=== PATIENT | male | born 1995 | race Caucasian/White ===

== ENCOUNTER 2019-10-19 13:02 | Emergency (ER) | payer OTHER ==
--- NOTE | 2019-10-19 13:25 | ED Physician Documentation ---
PD HPI CHEST PAIN - Stated complaint Stated Complaint: CP - Chief complaint Chief Complaint: Cardiac - History obtained from History obtained from: Patient - History of Present Illness Timing - onset: How many days ago (3) Timing - onset during: Rest Timing - duration: Days (3) Timing - details: Gradual onset, Still present, Waxing and waning Pain level max: 7 Pain level now: 1 Quality: Pressure, Throbbing Location: Substernal, Left chest Radiation: No: Jaw, Neck, Back, Abdominal, Left upper extremity, Right upper extremity Improved by: Rest Worsened by: Exertion, Inspiration, Position Associated symptoms: Shortness of air. No: Diaphoresis, Nausea, Vomiting, Feeling faint / dizzy, General Weakness, Palpitations, Cough Similar symptoms before: No diagnosis Recently seen: Not recently seen - Additional information Additional information: 23-year-old relates that last night he was sitting at his desk when he developed substernal chest pain without radiation it is worse with inspiration worse with certain movement and certain position. He denies any radiation of the pain he denies any diaphoresis nausea or lightheadedness with this pain. He has had this pain previously when he was a sophomore in high school and periodically since then he has had had similar pain for several days. Pain peaked last night and is now improved. Review of Systems Constitutional: denies: Fever Eyes: denies: Decreased vision Ears: denies: Ear pain Nose: denies: Congestion Throat: denies: Sore throat Cardiac: reports: Chest pain / pressure. denies: Palpitations, Pedal edema, Calf pain Respiratory: denies: Dyspnea, Cough GI: denies: Abdominal Pain, Nausea, Vomiting : denies: Dysuria Skin: denies: Rash Musculoskeletal: denies: Neck pain, Back pain, Extremity pain Neurologic: denies: Generalized weakness, Focal weakness, Numbness PD PAST MEDICAL HISTORY - Present Medications Home Medications: Ambulatory Orders Medication Instructions Recorded Confirmed Meloxicam 15 mg PO DAILY PRN #15 tablet 10/19/19 - Allergies Allergies/Adverse Reactions: Allergies Allergy/AdvReac Type Severity Reaction Status Date / Time No Known Drug Allergies Allergy Verified 10/19/19 13:04 PD ED PE NORMAL - Vitals Vital signs reviewed: Yes (normal ) - General General: Alert and oriented X 3, No acute distress, Well developed/nourished - HEENT HEENT: Atraumatic, PERRL, EOMI - Neck Neck: Supple, no meningeal sign, No bony TTP - Cardiac Cardiac: RRR, No murmur - Respiratory Respiratory: No respiratory distress, Clear bilaterally, Other (No specific chest wall tenderness) - Abdomen Abdomen: Soft, Non tender - Back Back: No CVA TTP, No spinal TTP - Derm Derm: Normal color, Warm and dry, No rash - Extremities Extremities: No deformity, No edema, No calf tenderness / cord - Neuro Neuro: Alert and oriented X 3, auto porter 2-12 intact, No motor deficit, No sensory deficit, Normal speech Eye Opening: Spontaneous Motor: Obeys Commands Verbal: Oriented GCS Score: 15 - Psych Psych: Normal mood, Normal affect Results - Vitals Vitals: Vital Signs - 24 hr 10/19/19 10/19/19 10/19/19 13:04 13:34 14:36 Temperature 36.8 C Heart Rate 58 L 57 L 59 L Respiratory 16 16 12 Rate Blood Pressure 125/72 120/71 119/69 O2 Saturation 99 99 99 Oxygen O2 Source Room air - EKG (time done) 1311 Rate: Rate (enter#) (56) Rhythm: NSR Compare to prior EKG: Old EKG unavailable Computer interpretation: Agree with computer - Labs Labs: Laboratory Tests 10/19/19 10/19/19 10/19/19 13:30 13:30 13:30 WBC 4.7 L RBC 5.14 Hgb 16.7 Hct 48.8 MCV 94.9 H MCH 32.5 H MCHC 34.2 RDW 11.6 L Plt Count 237 MPV 10.5 Neut # (Auto) 2.7 Lymph # (Auto) 1.5 [place] # (Auto) 0.5 Eos # (Auto) 0.0 Baso # (Auto) 0.0 Absolute Nucleated RBC 0.00 Nucleated RBC % 0.0 Sodium 137 Potassium 4.0 Chloride 99 L Carbon Dioxide 30 Anion Gap 8.0 BUN 12 Creatinine 1.2 Estimated GFR (MDRD) 76 L Glucose 88 Calcium 9.5 Total Bilirubin 1.5 H AST 16 ALT 13 Alkaline Phosphatase 51 Troponin I High Sens < 2.3 L Total Protein 7.5 Albumin 4.4 Globulin 3.1 Albumin/Globulin Ratio 1.4 Lipase 26 - Rads (name of study) chest Radiology: Prelim report reviewed (Impression: No acute cardiopulmonary process is seen.), EMP read indepedently, See rad report PD MEDICAL DECISION MAKING - ED course Complexity details: reviewed results, re-evaluated patient, considered differential, d/w patient ED course: 23-year-old male with pleuritic chest pain has a negative cardiac work-up and symptoms of pleuritic chest pain. He is administered dexamethasone and Toradol and given instructions for pleurisy.We have written a prescription for meloxicam Departure - Departure Disposition: 01 Home, Self Care Clinical Impression: Atypical chest pain, Pleurisy Condition: Stable Instructions: ED Chest Pain Pleurisy Follow-Up: JANE Elizondo [Provider Group] Prescriptions: Meloxicam 15 mg PO DAILY PRN #15 tablet PRN Reason: Pain Discharge Date/Time: 10/19/19 14:55
--- NOTE | 2019-10-19 13:46 | XRAY Report ---
PROCEDURE: Chest 1 View X-Ray INDICATIONS: Chest Pain TECHNIQUE: One view of the chest was acquired. COMPARISON: None available. FINDINGS: Surgical changes and devices: None. Lungs and pleura: No pleural effusions or pneumothorax. Lungs are clear. Mediastinum: Mediastinal contours appear normal. Heart size is normal. Bones and chest wall: No suspicious bony lesions. Overlying soft tissues appear unremarkable. IMPRESSION: No acute cardiopulmonary process is seen. Reviewed by: Ky Little MD on 10/19/2019 12:45 PM [facility] Approved by: Ky Little MD on 10/19/2019 12:45 PM [facility] Station ID: [id number]
[2019-10-19 13:47] LABS: BASOPHILS % (AUTO) 0.2 %; EOSINOPHILS % (AUTO) 0.4 %; HGB - HEMOGLOBIN 16.7 g/dL (14.0-18.0); LYMPHOCYTES # (AUTO) 1.5 10^3/uL (1.5-3.5); LYMPHOCYTES % (AUTO) 31.8 %; MEAN CORPUSCULAR HEMOGLOBIN 32.5 pg (27.0-31.0); MEAN CORPUSCULAR HGB CONC 34.2 g/dL (32.0-36.0); MEAN CORPUSCULAR VOLUME 94.9 fL (80.0-94.0); MEAN PLATELET VOLUME 10.5 fL (7.4-11.4); MONOCYTES # (AUTO) 0.5 10^3/uL (0.0-1.0); MONOCYTES % (AUTO) 9.8 %; NEUTROPHILS # (AUTO) 2.7 10^3/uL (1.5-6.6); NEUTROPHILS % (AUTO) 57.6 %; PLT - PLATELET COUNT 237 10^3/uL (130-450); RED BLOOD COUNT 5.14 10^6/uL (4.70-6.10); RED CELL DISTRIBUTION WIDTH 11.6 % (12.0-15.0); WHITE BLOOD COUNT 4.7 x10^3/uL (4.8-10.8)
[2019-10-19 14:01] LABS: ALBUMIN 4.4 g/dL (3.2-5.5); ALBUMIN/GLOBULIN RATIO 1.4 (1.0-2.2); BILIRUBIN,TOTAL 1.5 mg/dL (0.2-1.0); CALCIUM 9.5 mg/dL (8.5-10.3); CREATININE 1.2 mg/dL (0.6-1.2); TOTAL PROTEIN 7.5 g/dL (6.7-8.2)
[2019-10-19] MEDS ORDERED: KETOROLAC 30 MG/ML VIAL IVP STA (14:23)
[2019-10-19] MEDS ORDERED: DEXAMETHASONE 10 MG/ML VIAL IVP STA (14:23)
[2019-10-19 14:37] VITALS: BP 119/69
== END 2019-10-19 14:55 | disposition home or self-care (01) ==
LOC: ED 13:02
DX: R09.1 Pleurisy (principal); R07.89 Other chest pain
CPT/HCPCS: 36415; 71045; 80053; 83690; 84484; 85025; 93005; 96374; 99284

== ENCOUNTER 2020-05-23 19:19 | Emergency (ER) | payer OTHER ==
[2020-05-23] MEDS ORDERED: valACYclovir 500 MG TABLET PO STA (20:03)
[2020-05-23] MEDS ORDERED: CLINDAMYCIN 150 MG CAPSULE PO STA (20:03)
[2020-05-23] MEDS ORDERED: DEXAMETHASONE 10 MG/ML VIAL PO STA (20:03)
[2020-05-23] MEDS ORDERED: CHERRY SYRUP 10 ML UDC PO ONE (20:03)
--- NOTE | 2020-05-23 20:21 | ED Physician Documentation ---
History of Present Illness - Stated complaint Stated Complaint: ULCER ON TONGUE - Chief complaint Chief Complaint: Heent - History obtained from History obtained from: Patient - History of Present Illness Timing: How many days ago (3-4) Pain level max: 8 Pain level now: 8 - Additonal information Additional information: Patient is a 24-year-old male who presents to the emergency department complaint of an ulceration to the right side of his tongue. States this is occurred 2-3 times in the past. Normally resolves on its own within a few weeks. States difficult to eat, drink or talk. He is typing on his phone. No fevers. No chills. No vomiting. Nothing makes it better. Worse with any sort of movement or palpation Review of Systems Constitutional: denies: Fever, Chills GI: denies: Vomiting, Diarrhea Skin: denies: Rash PD PAST MEDICAL HISTORY - Past Medical History Past Medical History: No Cardiovascular: None Respiratory: None Neuro: None Endocrine/Autoimmune: None GI: None : None HEENT: None Psych: None Musculoskeletal: None Derm: None - Past Surgical History Past Surgical History: No - Present Medications Home Medications: Ambulatory Orders Medication Instructions Recorded Confirmed Meloxicam 15 mg PO DAILY PRN #15 tablet 10/19/19 05/23/20 HYDROcod/ACETAM 5/325 [[place] 5/325] 1 - 2 ea PO Q6H PRN #14 tablet 05/23/20 Valacyclovir HCl [Valtrex] 1,000 mg PO TID #21 tablet 05/23/20 clindamycin HCL [Cleocin HCl] 300 mg PO Q6H #40 cap 05/23/20 - Allergies Allergies/Adverse Reactions: Allergies Allergy/AdvReac Type Severity Reaction Status Date / Time No Known Drug Allergies Allergy Verified 10/19/19 13:04 - Social History Does the pt smoke?: No Smoking Status: Never smoker Does the pt drink ETOH?: Yes Does the pt have substance abuse?: No - Immunizations Immunizations are current?: Yes Immunizations: TDAP current <10years PD ED PE NORMAL - Vitals Vital signs reviewed: Yes - General General: Alert and oriented X 3, No acute distress - HEENT HEENT: Moist mucous membranes, Other (Swelling, ulceration and yellow plaques to the posterior lateral aspect of the right tongue. Normal phonation. No trismus. No swelling on the floor of the mouth.) - Neck Neck: Supple, no meningeal sign, No adenopathy - Cardiac Cardiac: RRR - Respiratory Respiratory: No respiratory distress, Clear bilaterally - Derm Derm: Warm and dry - Extremities Extremities: No edema - Neuro Neuro: Alert and oriented X 3 Results - Vitals Vitals: Vital Signs - 24 hr 05/23/20 05/23/20 19:29 20:28 Temperature 37.0 C 36.6 C Heart Rate 80 71 Respiratory 19 16 Rate Blood Pressure 122/68 109/70 O2 Saturation 100 100 Oxygen O2 Source Room air PD MEDICAL DECISION MAKING - ED course Complexity details: considered differential, d/w patient ED course: Patient with swelling of the right posterior lateral tongue and ulcerations with yellow discoloration. . We will trial him antivirals and antibiotics. Given dexamethasone here as well. As this is occurred several times previously, I think it be reasonable to follow-up with the ENT. Patient will take photos of the wound for ENT follow-up. Patient counseled regarding signs and symptoms for which I believe and urgent re-evaluation would be necessary. Patient with good understanding of and agreement to plan and is comfortable going home at this time This document was made in part using voice recognition software. While efforts are made to proofread this document, sound alike and grammatical errors may occur. Departure - Departure Disposition: 01 Home, Self Care Clinical Impression: Tongue ulceration, Aphthous ulcer of mouth Condition: Good Instructions: ED Canker Sore Follow-Up: your,doctor in 1 week [Other] Prescriptions: clindamycin HCL [Cleocin HCl] 300 mg PO Q6H #40 cap HYDROcod/ACETAM 5/325 [[place] 5/325] 1 - 2 ea PO Q6H PRN #14 tablet PRN Reason: Pain Valacyclovir HCl [Valtrex] 1,000 mg PO TID #21 tablet Comments: Follow-up with your doctor for further care. Return if you worsen. Take pictures of the area as it heals. You should follow-up with a nuclear engineering technician as this is the third time this is occurred. Your doctor should put in this referral for you. Do not drink alcohol or drive while on narcotic pain medicine. Note that many narcotic pain relievers also contain tylenol/acetaminophen. Pl ease ensure that your total dose of acetaminophen from all sources does not exceed 3 grams (3000mg) per day. You may constipated on this medication, take a stool softener such as "Colace" twice a day while you are on it. Also recommend a [id number] laxative such as senna or MiraLAX any day that you do not have a bowel movement. If you received narcotic pain medication in the emergency department, do not drive or operate machinery for the next 24 hours. Discharge Date/Time: 05/23/20 20:30
[2020-05-23 20:30] VITALS: BP 109/70
== END 2020-05-23 20:30 | disposition home or self-care (01) ==
LOC: ED 19:19
DX: K14.0 Glossitis (principal); K12.0 Recurrent oral aphthae
CPT/HCPCS: 99283; 99284; A9270